=== PATIENT | male | born 1940 ===

== ENCOUNTER 2019-04-15 23:11 | Inpatient (IN) ==
--- NOTE | 2019-04-15 23:26 | ERNOTE ---
Lower Extremity HPI - General Lower Extremities Pain: hip: left - fracture Time Seen by Provider: 04/15/19 23:15 Source: patient, other - [facility] records Exam Limitations: no limitations - Immun/Allergies/Home Medications Immunizations: IMMUNIZATION HX Immunizations Up to Date Yes History of Influenza Vaccine Yes Allergies/Adverse Reactions: Allergies Allergy/AdvReac Type Severity Reaction Status Date / Time No Known Allergies Allergy Unverified 12/09/13 13:23 Home Medications: HOME MEDICATIONS Aspirin/Dipyridamole [Aggrenox] 1 cap PO BID 04/15/19 [Last Taken Unknown] Cholecalciferol [Vitamin D] 1,000 unit PO DAILY 04/15/19 [Last Taken Unknown] Ezetimibe/Simvastatin [Vytorin 10-40 mg Tablet] 1 ea PO DAILY 04/15/19 [Last Taken Unknown] Famotidine [Pepcid] 20 mg PO DAILY 04/15/19 [Last Taken Unknown] Gabapentin [Neurontin] 300 mg PO BID 04/15/19 [Last Taken Unknown] Losartan Potassium 100 mg PO DAILY 04/15/19 [Last Taken Unknown] Multivit-Min/FA/Lycopen/Lutein [Centrum Silver Tablet] 1 ea PO DAILY 04/15/19 [Last Taken Unknown] Sertraline HCl [Zoloft] 50 mg PO HS 04/15/19 [Last Taken Unknown] Tamsulosin HCl 0.4 mg PO DAILY 04/15/19 [Last Taken Unknown] Tramadol HCl [Rybix Odt] 50 mg PO QID PRN 04/15/19 [Last Taken Unknown] Insulin Aspart Prot/Insuln Asp [Novolog Mix 70/30] 18 units SC QPM 04/16/19 [Last Taken Unknown] Insulin Aspart Prot/Insuln Asp [Novolog Mix 70/30] 30 units SC QAM 04/16/19 [Last Taken Unknown] Methocarbamol [Robaxin] 500 mg PO TID 04/16/19 [Last Taken Unknown] - History of Present Illness Narrative: Patient slid out of his chair fell on his left hip sustained a surgical neck fracture, nondisplaced. He was seen at [facility] and diagnosed he was transferred here for orthopedics and accepted by Dr. Chavez Occurred: this evening Location of Incident: home Method of Injury: Reports: fell Loss of Consciousness: Reports: no loss of consciousness Associated Symptoms: Reports: unable to bear weight Other Injuries: Reports: none Review of Systems - Review of Systems Constitutional: Absent: recent illness, fever, chills Respiratory: Absent: shortness of breath Cardiology: Absent: chest pain Gastrointestinal/Abdominal: Absent: nausea, vomiting Genitourinary: Absent: pain, dysuria Musculoskeletal: Present: See HPI Skin: Absent: rash Neurological: Absent: numbness, tingling Endocrine: Absent: excessive sweating Hematologic/Lymphatic: Absent: easy bruising, easy bleeding Medical History (Updated 04/17/19 @ 10:57 by Saray Barton DO) Diabetes HTN (hypertension) Surgical History: Surgical History (Updated 04/15/19 @ 23:20 by Leta Levi) History of back surgery Hx of foot surgery Hx of shoulder replacement Hx of shoulder surgery right shoulder Social History: (Last Reviewed 04/16/19 @ 02:03 by Anu Quispe RN) Social History: adopted: No chcf: No lives independently: Yes household members: spouse current occupational status: retired Tobacco: Smoking Status: Never smoker Alcohol: alcohol intake: never Substance Use: substance use type: does not use Physical Exam - Physical Exam General Appearance: Present: wd/wn, alert, no apparent distress Head Exam: Present: normal inspection, no evidence of injury Ears, Nose, Throat: Present: normal ENT inspection Neck: Present: normal inspection, nontender Respiratory: Present: no respiratory distress, normal breath sounds, chest nontender, lungs clear Cardiovascular/Chest: Present: regular rate, rhythm, no murmur, normal peripheral pulses Peripheral Pulses: N=norm/S=strong/W=weak/B=bound/A=absent: Dorsalis-pedis (R): Normal, Dorsalis-pedis (L): Normal Gastrointestinal/Abdominal: Present: normal bowel sounds, nontender, nondistended, soft Extremity Exam: Present: normal except - - Left hip painful with motion. Minimal tenderness to palpation Neurological Exam: Present: alert, oriented, normal mood/affect, no motor/sensory deficits Skin Exam: Present: normal color, warm/dry Progress - Vital Signs Vital Signs: Vital Signs 04/15/19 23:13 Temperature 36.9 C Pulse Rate 78 Respiratory Rate 18 Blood Pressure 187/93 H O2 Sat by Pulse Oximetry 98 - Progress/Reassessment Chief Complaint: Hip Pain/Injury Progress Note-Subjective: 04/15/19 23:26 I reviewed records from [facility] Spoke with Dr. Chavez he asked patient be admitted to medicine and consult orthopedics. 04/16/19 00:[address] Hicks she agrees with admit and consult Dr. Chavez Departure Clinical Impression: Fracture of femoral neck, left Qualifiers: Encounter type: initial encounter Fracture type: closed Qualified Code(s): S72.002A - Fracture of unspecified part of neck of left femur, initial encounter for closed fracture Hypertension Qualifiers: Hypertension type: essential hypertension Qualified Code(s): I10 - Essential (primary) hypertension Diabetes Qualifiers: Diabetes mellitus type: type 2 Diabetes mellitus correction insulin use: with long term care administrator use Diabetes mellitus complication status: without complication Qualified Code(s): E11.9 - Type 2 diabetes mellitus without complications - Departure Disposition: Still a patient Condition: Stable
[2019-04-16] MEDS ORDERED: ONDANSETRON HCL/PF 2 MG/ML VIAL IV PRN (00:50)
[2019-04-16] MEDS: MORPHINE SULFATE 2 MG/ML DISP.SYRIN IV PRN ×4 (01:18→10:09)
[2019-04-16] MEDS ORDERED: ROPIVACAINE HCL/PF 100 MG, EPINEPHrine 0.2 MG, KETOROLAC TROMETHAMINE 30 MG in NORMAL S... IJ PRN (06:00)
[2019-04-16] MEDS ORDERED: ceFAZolin SODIUM 1 GM VIAL IV PRN (06:00)
[2019-04-16] MEDS ORDERED: TRANEXAMIC ACID 1,000 MG in NORMAL SALINE 100 ML IV PRN (06:00)
--- NOTE | 2019-04-16 07:17 | HP ---
Chief Complaint - Chief Complaint Date of Service: 04/16/19 Time of Service: 07:00 Chief Complaint: Left hip fracture History of Present Illness: 78-year-old male with past medical history of essential hypertension and non-insulin diabetes mellitus type 2, depression and BPH presented to [facility] from home secondary to a fall. Daughter is at bedside. Patient states that he fell down on his back and he hit his arm on his way down resulting in the bruises on his left forearm. Is that he did not hit his head on the floor. He landed on the floor he was supported by the cabinet behind him. He states that he pushed his emergency alert button and called his daughter. His daughter was called because they were concerned that his may not be able to handle the locks on the door. Patient was brought into the ER and evaluated and was found to have a left hip fracture. Dr Chavez was consulted and patient was accepted and transferred to the floor. On arrival to the floor I was notified the patient's blood pressure was elevated to systolic greater than 200 and diastolic of greater than 991. Heart rate was greater than 100. She was complaining of tachycardia. Some concern the patient may be confused. However when daughter came in this morning we verified father's mental status and she confirmed that this is how his father is. And examined patient is alert and oriented x3 examinations unremarkable. Examination is only significant for the bruising on his right forearm. It is well controlled with current medication or tramadol. Losartan 100 mg administered. Is patient's home medication. Stat labs were obtained, along with EKG and troponin. Labs are currently unremarkable, EKG is not concerning. BP is elevated however patient is asymptomatic. Medical History (Updated 04/16/19 @ 00:04 by Shane Clancy DO) Diabetes HTN (hypertension) Surgical History: Surgical History (Updated 04/15/19 @ 23:20 by Leta Levi) History of back surgery Hx of foot surgery Hx of shoulder replacement Hx of shoulder surgery right shoulder Social History: (Last Reviewed 04/16/19 @ 02:03 by Anu Quispe RN) Social History: adopted: No mcfp: No lives independently: Yes household members: spouse current occupational status: retired Tobacco: Smoking Status: Never smoker Alcohol: alcohol intake: never Substance Use: substance use type: does not use Review Of Systems (GEN) - Review of Systems Generalized/Overall Review: Absent: Weakness EENTM: Absent: Blurred Vision Respiratory: Absent: Shortness of Breath Cardiac: Absent: Chest Pain, Edema Abdominal: Absent: Nausea, Vomiting Musculoskeletal: Present: Joint Pain - Pain Neurological: Present: Headache Skin: Present: Bruising - Left forearm Immunizations: IMMUNIZATION HX Immunizations Up to Date Yes History of Influenza Vaccine Yes Allergies/Adverse Reactions: Allergies Allergy/AdvReac Type Severity Reaction Status Date / Time No Known Allergies Allergy Unverified 12/09/13 13:23 Home Medications: HOME MEDICATIONS Insulin Aspart [Novolog] 35 unit SC QPM 12/09/13 [Last Taken Unknown] Insulin Aspart [Novolog] 45 unit SQ QAM 12/09/13 [Last Taken Unknown] Aspirin/Dipyridamole [Aggrenox] 1 cap PO BID 04/15/19 [Last Taken Unknown] Cholecalciferol [Vitamin D] 1,000 unit PO DAILY 04/15/19 [Last Taken Unknown] Ezetimibe/Simvastatin [Vytorin 10-40 mg Tablet] 1 ea PO DAILY 04/15/19 [Last Taken Unknown] Famotidine [Pepcid] 20 mg PO DAILY 04/15/19 [Last Taken Unknown] Gabapentin [Neurontin] 300 mg PO BID 04/15/19 [Last Taken Unknown] Insulin NPH Hum/Reg Insulin Hm [Humulin 70-30] 18 unit SC 1700 04/15/19 [Last Taken Unknown] Insulin NPH Hum/Reg Insulin Hm [Humulin 70-30] 30 unit SC DAILY 04/15/19 [Last Taken Unknown] Losartan Potassium 100 mg PO DAILY 04/15/19 [Last Taken Unknown] Multivit-Min/FA/Lycopen/Lutein [Centrum Silver Tablet] 1 ea PO DAILY 04/15/19 [Last Taken Unknown] Sertraline HCl [Zoloft] 50 mg PO HS 04/15/19 [Last Taken Unknown] Tamsulosin HCl 0.4 mg PO DAILY 04/15/19 [Last Taken Unknown] Tramadol HCl [Rybix Odt] 50 mg PO QID PRN 04/15/19 [Last Taken Unknown] Methocarbamol [Robaxin] 500 mg PO TID 04/16/19 [Last Taken Unknown] Exam - Exam Vital Signs: Vital Signs - Last Taken Temp 37.0 C 04/16/19 06:54 Pulse 80 04/16/19 06:54 Resp 16 04/16/19 06:54 BP 208/98 H 04/16/19 06:54 Pulse Ox 93 04/16/19 06:54 Constitutional: Present: Alert, Oriented x3, Cooperative, Well developed, No distress ENT Exam: Present: hearing grossly normal Neck: Present: non-tender, full range of motion, supple Respiratory: Present: chest non-tender, lungs clear, normal breath sounds Cardiovascular/Chest: Present: normal peripheral pulses, regular rate, rhythm Abdomen: Present: Normal bowel sounds, soft Extremity: Present: no pedal edema, normal capillary refill Skin Exam: Present: normal color, warm/dry Appearance: Present: appropriate appearance Eye contact: Present: cooperative Thoughts: Present: normal thought pattern Assessment/Plan - Narrative Narrative: 1. Left Hip fracture - Dr. Chavez consulted - Cont. management as per ortho recommendations 2. Hypertensive Urgency upon evaluation in the morning, currently asymptomatic - Not well controlled - Recieved Losartan 100mg PO X1 - Followed by Hydralazine 10 mg POX 1 - Just administered Labetalol 5 mg IV - EKG, Cardiac workup unremarkable - Currently Asymptomatic FEN: NPO, NS, resume diet after surgery DVT prophylaxis: Will start 12 hours s/p surgery Activity: As per ortho recommendations CODE STATUS: Full code Disposition: Due to poorly controlled hypertension, patient has a higher risk of complications s/p surgery. Will continue to monitor Resume diet and meds after surgery - Assessment/Plan (1) Fracture of femoral neck, left Problem: Acute Qualifiers: Encounter type: initial encounter Fracture type: closed Qualified Code(s): S72.002A - Fracture of unspecified part of neck of left femur, initial encounter for closed fracture (2) Hypertension Problem: Acute Qualifiers: Hypertension type: essential hypertension Qualified Code(s): I10 - Essential (primary) hypertension (3) Diabetes Problem: Acute Qualifiers: Diabetes mellitus type: type 2 Diabetes mellitus skilled nursing insulin use: with extermination inspector use Diabetes mellitus complication status: without complication Qualified Code(s): E11.9 - Type 2 diabetes mellitus without complications; Z79.4 - extermination inspector (current) use of insulin
[2019-04-16] MEDS ORDERED: LOSARTAN POTASSIUM 50 MG TABLET PO SCH ×2 (07:30→09:00)
[2019-04-16 07:50] LABS: Hematocrit 43.7 % (42.0-52.0); Hemoglobin 15.5 gm/dL (13.5-18.0); Mean Cell Volume 93.6 fl (78-100); Mean Corpuscular Hemoglobin 33.2 pg (27-31); Mean Corpuscular Hgb Conc 35.5 g/dl (32-36); Mean Platelet Volume 9.6 fl (8-11.3); Neutrophil # 8.1 K/mm3 (1.3-6.0); Neutrophil % 74.2 % (42-75.0); Platelet Count 133 K/mm3 (150-450); Red Blood Count 4.67 M/mm3 (4.7-6.0); Red Cell Distribution Width 13.3 % (11.5-14.0)
[2019-04-16] MEDS ORDERED: LOSARTAN POTASSIUM 50 MG TABLET PO ONE (08:00)
[2019-04-16 08:10] LABS: ALT 19 U/L (19-67); AST 25 U/L (0-48); Albumin * 3.7 gm/dl (3.4-5.0); Alkaline Phosphatase * 84 U/L (50-170); Anion Gap 12.3 mmol/L (6.8-13.8); BUN/Creatinine Ratio 11.8 (9.0-21.6); Blood Urea Nitrogen 13 mg/dL (6-23); Ca. Corrected For Albumin 8.7 mg/dL (8.4-10.2); Calcium * 8.8 mg/dL (7.9-10.9); Carbon Dioxide 30.2 mmol/L (24-32.6); Chloride 104 mmol/L (97-106); Glucose * 140 mg/dL (70-110); Potassium 4.5 mmol/L (3.4-4.6); Sodium 142 mmol/L (132-142); Total Protein 6.5 gm/dL (6.2-8.2)
[2019-04-16 08:11] LABS: Troponin I Less than 0.017 ng/mL (0.00-0.10)
[2019-04-16 09:08] LABS: INR 1.11 INR (0.92-1.08); Prothrombin Time (Patient) 10.9 Seconds (9.1-10.7)
--- NOTE | 2019-04-16 09:24 | ANES ---
Anesthesia Pre Procedure Eval Vitals/Labs: Last Vital Signs Temp 37.0 C 04/16/19 06:54 Pulse 78 04/16/19 09:10 Resp 16 04/16/19 06:54 BP 191/84 H 04/16/19 09:10 Pulse Ox 96 04/16/19 09:10 HOME MEDICATIONS Insulin Aspart [Novolog] 35 unit SC QPM 12/09/13 [Last Taken Unknown] Insulin Aspart [Novolog] 45 unit SQ QAM 12/09/13 [Last Taken Unknown] Aspirin/Dipyridamole [Aggrenox] 1 cap PO BID 04/15/19 [Last Taken Unknown] Cholecalciferol [Vitamin D] 1,000 unit PO DAILY 04/15/19 [Last Taken Unknown] Ezetimibe/Simvastatin [Vytorin 10-40 mg Tablet] 1 ea PO DAILY 04/15/19 [Last Taken Unknown] Famotidine [Pepcid] 20 mg PO DAILY 04/15/19 [Last Taken Unknown] Gabapentin [Neurontin] 300 mg PO BID 04/15/19 [Last Taken Unknown] Insulin NPH Hum/Reg Insulin Hm [Humulin 70-30] 18 unit SC 1700 04/15/19 [Last Taken Unknown] Insulin NPH Hum/Reg Insulin Hm [Humulin 70-30] 30 unit SC DAILY 04/15/19 [Last Taken Unknown] Losartan Potassium 100 mg PO DAILY 04/15/19 [Last Taken Unknown] Multivit-Min/FA/Lycopen/Lutein [Centrum Silver Tablet] 1 ea PO DAILY 04/15/19 [Last Taken Unknown] Sertraline HCl [Zoloft] 50 mg PO HS 04/15/19 [Last Taken Unknown] Tamsulosin HCl 0.4 mg PO DAILY 04/15/19 [Last Taken Unknown] Tramadol HCl [Rybix Odt] 50 mg PO QID PRN 04/15/19 [Last Taken Unknown] Methocarbamol [Robaxin] 500 mg PO TID 04/16/19 [Last Taken Unknown] Allergies/Adverse Reactions: Allergies Allergy/AdvReac Type Severity Reaction Status Date / Time No Known Allergies Allergy Unverified 12/09/13 13:23 - Planned Procedure Planned Procedure: LEFT HIP FRACTURE Medication List Reviewed:: Yes Allergies Verified: Yes Medical History (Updated 04/16/19 @ 00:04 by Shane Clancy DO) Diabetes HTN (hypertension) Surgical History (Updated 04/15/19 @ 23:20 by Leta Levi) History of back surgery Hx of foot surgery Hx of shoulder replacement Hx of shoulder surgery right shoulder - Family Anesthesia History Family History:: no untoward family reactions to anesthesia - Airway/Neck/Teeth Within Normal Limits:: Yes Teeth Condition: intact Neck Exam: full range of motion Mallampatti Score: 2 Thyromental (T-M) distance: > 6 cm Mandibulo Hyoid distance: > 3 cm - Respiratory Respiratory Physical: lungs clear Smoking Status: Never smoker Sleep Apnea currently treated: No Sleep Apnea by current assessment: No - Cardiovascular Cardiac History: TIA, hypertension Tolerate Activity: Fair Heart Sounds: S1 & S2, Regular - Anesthesia Assessment and Plan ASA Class: PS, III Anesthesia Type Plan: General ET Planned difficult intubation/equipment available: No
[2019-04-16] MEDS ORDERED: hydrALAZINE HCL 10 MG TABLET PO ONE (09:45)
[2019-04-16] MEDS ORDERED: LABETALOL HCL 5 MG/ML VIAL IV ONE (11:01)
--- NOTE | 2019-04-16 11:47 | CONS ---
[facility] - General Date of Service: 04/16/19 Narrative: Michael is an 78-year-old male who fell from standing height in his home last night and sustained a left femoral neck fracture. He was initially evaluated in outside emergency department where plain films revealed fracture. He was transferred to the [facility] emergency department for further orthopedic treatment. He has no other injuries. He complains only of left hip pain upon my evaluation at bedside. He notes that he has had a couple falls in the last year secondary to losing his balance. He is otherwise fairly active and a community ambulator. He lives at home with his who he helps take care of as she has some dementia. He has a history of diabetes and hypertension. He denies headache, dizziness, chest pain, or shortness of breath. Source: patient - History of Present Illness Allergies/Adverse Reactions: Allergies No Known Allergies Allergy (Unverified 12/09/13 13:23) Home Medications: Home Medications Medication Instructions Recorded Last Taken Insulin Aspart [Novolog] 35 unit SC QPM 12/09/13 Unknown Insulin Aspart [Novolog] 45 unit SQ QAM 12/09/13 Unknown Aspirin/Dipyridamole [Aggrenox] 1 cap PO BID 04/15/19 Unknown Cholecalciferol [Vitamin D] 1,000 unit PO DAILY 04/15/19 Unknown Ezetimibe/Simvastatin [Vytorin 1 ea PO DAILY 04/15/19 Unknown 10-40 mg Tablet] Famotidine [Pepcid] 20 mg PO DAILY 04/15/19 Unknown Gabapentin [Neurontin] 300 mg PO BID 04/15/19 Unknown Insulin NPH Hum/Reg Insulin Hm 18 unit SC 1700 04/15/19 Unknown [Humulin 70-30] Insulin NPH Hum/Reg Insulin Hm 30 unit SC DAILY 04/15/19 Unknown [Humulin 70-30] Losartan Potassium 100 mg PO DAILY 04/15/19 Unknown Multivit-Min/FA/Lycopen/Lutein 1 ea PO DAILY 04/15/19 Unknown [Centrum Silver Tablet] Sertraline HCl [Zoloft] 50 mg PO HS 04/15/19 Unknown Tamsulosin HCl 0.4 mg PO DAILY 04/15/19 Unknown Tramadol HCl [Rybix Odt] 50 mg PO QID PRN 04/15/19 Unknown Methocarbamol [Robaxin] 500 mg PO TID 04/16/19 Unknown Procedures Insertion of intraocular lens prosthesis at time of cataract extraction, one- stage (12/13/13) Phacoemulsification and aspiration of cataract (12/13/13) Medications - Medications Current Medications: Current Medications Morphine Sulfate (Morphine Sulfate) 2 mg IV Q2H PRN PRN Reason: Pain Stop: 05/16/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 Physical Examination - Exam Narrative: Gen: A&Ox4, NAD Resp: breathing nonlabored on RA CV: RRR MSK: LLE--> severe pain with any attempted range of motion of the left lower extremity, no tenderness, leg slightly shortened and externally rotated, sensation intact light touch throughout all nerve distributions of the left lower extremity, distal capillary refill brisk. Radiology: Plain films from outside emergency department demonstrated displaced left femoral neck fracture with mild to moderate pre-existing degenerative change of the hip. Vital Signs: Vital Signs - Last Taken Temp 37.0 C 04/16/19 06:54 Pulse 72 04/16/19 11:35 Resp 16 04/16/19 06:54 BP 200/87 H 04/16/19 11:35 Pulse Ox 96 04/16/19 09:10 O2 Oxygen Delivery Method Room Air - Results and Findings: Narrative: 78-year-old male community ambulator with displaced left femoral neck fracture. -I counseled the patient on treatment options today including nonoperative management with protected weightbearing and pain control versus arthroplasty. I counseled him that based on his age, activity level, and relatively good health, that I recommended surgery, particularly total hip arthroplasty. I counseled him on the risk of surgery including, but not limited to, infection, bleeding, need for postoperative transfusion, intraoperative fracture, implant failure/loosening, instability, leg length discrepancy, wound complications, DVT/PE, and risks with anesthesia. After discussion he wishes to proceed with surgery. -Plan for left total hip arthroplasty this afternoon once medically optimized. -Informed consent obtained. -Blood pressure elevated, medicine team managing. -N.p.o. -Admit back to floor postoperatively for physical therapy, medical comanagement, and discharge planning. Lab/Microbiology results last 24 hrs: Abnormal/Pending Laboratory Last 24 HRS 04/16/19 04/16/19 04/16/19 07:46 07:46 07:45 WBC 11.0 H RBC 4.67 L MCH 33.2 H Plt Count 133 L Immature Gran # (Auto) 0.04 H Lymphocytes % 14.6 L Neutrophils # 8.1 H PT 10.9 H INR (Anticoag Therapy) 1.11 H Plasma Sodium 143 H Random Glucose 140 H - Assessments/Findings (1) Fracture of femoral neck, left Problem: Acute Qualifiers: Encounter type: initial encounter Fracture type: closed Qualified Code(s): S72.002A - Fracture of unspecified part of neck of left femur, initial encounter for closed fracture
[2019-04-16] MEDS ORDERED: VANCOMYCIN HCL 1 GM VIAL TP ONE (13:51)
[2019-04-16] MEDS: RINGER'S SOLUTION,LACTATED 1,000 ML IV PRN ×2 (14:31→23:15)
[2019-04-16] MEDS ORDERED: oxyCODONE HCL/ACETAMINOPHEN 1 TAB TABLET PO PRN (15:40)
[2019-04-16] MEDS ORDERED: MAG HYDROX/ALUMINUM HYD/SIMETH 30 ML UDC PO PRN (15:40)
[2019-04-16] MEDS ORDERED: ACETAMINOPHEN 500 MG TABLET PO PRN (15:40)
[2019-04-16] MEDS ORDERED: MAGNESIUM HYDROXIDE 30 ML UDC PO PRN (15:40)
[2019-04-16] MEDS ORDERED: MORPHINE SULFATE 4 MG/ML SYRG IV PRN (15:40)
--- NOTE | 2019-04-16 15:53 | OR ---
Operative Report - Dictated Report Narrative: Date: 04/16/2019 Preoperative diagnosis: Left displaced femoral neck fracture Postoperative diagnosis: Left displaced femoral neck fracture Procedure: Left total hip arthroplasty Surgeon: Francisco Chavez M.D. Carrier Washer: Thiago Mcqueen PA-C provided a set of essential, skilled, educated hands that assisted in positioning, transfer, retraction, manipulation, irrigation, closure of wounds, and placement of dressings all of which could not be provided by the available surgical crew. Anesthesia: Spinal and local periarticular joint injection. Complications: None Specimens: Femoral head/neck Estimated blood loss: 200 mL Retained implants: Depuy Corail size 15 femoral stem standard offset. Size 60 millimeter ouside diameter 3-hole [place] Gription acetabular cup. 60 millimeter outside by 36 millimeter inside diameter highly cross-linked acetabular liner. 36 millimeter diameter + 12 millimeter cobalt chromium femoral head. Cancellous 6.5mm screw 30 millimeter length Indications: Michael is a 78-year-old community ambulator who tripped and fell in his home last night resulting in a displaced left femoral neck fracture. He was initially seen in an outside emergency department where plain films revealed the injury. He was transferred to [facility] for further orthopedic management. He was seen on the floor and I counseled him on treatment options. Given his activity level, relatively good health, and fracture pattern, I recommended total hip arthroplasty. The risks of , blood clots, bleeding, infection, nerve/tendon blood vessel/ injury, malposition of components, dislocation and/or instability of joint, intraoperative fracture, postoperative limited range of motion, persistent pain, failure of components, and need for additional procedures. Patient wished to proceed. Consent was obtained after answering all questions. Procedure: After marking the correct extremity on the floor, the patient was taken to the operating room. A timeout was performed. IV antibiotics consisting of 2 g of Ancef were administered prior to the procedure. A spinal anesthetic was induced by anesthesia. A Gonzalez catheter was inserted. The patient was then transitioned to a lateral position on a well-padded pegboard. And an axillary roll was placed. The head was in neutral position. The non- operative down leg was well-padded with SCD and CRYSTAL hose in place. The arms were supported and padded to protect from any undue pressure on the bony prominences and nerves. Well-padded anterior and posterior pelvic and chest posts were secured in order to maintain a stable position of the pelvis. This was placed so that the pelvis was perpendicular to the floor. The body was in line with the pelvis. Once it was felt that we had protected all the bony prominences and the patient was well secured with a safety belt as well, the leg was pre-scrubbed with alcohol, prepped and draped in a standard sterile fashion. A standard anterior lateral hip incision was marked out over the greater trochanter. Ioban drapes were then placed. The skin incision was then made. Sharp dissection with a scalpel utilizing cautery for hemostasis was carried out down to the gluteus and iliotibial band fascia. This was split in line with the skin incision. The greater trochanter bursa was excised. The anterior and posterior margins of the abductor tendon were identified. The anterior 1/3 of the tendon was tagged and reflected off the greater trochanter leaving a sleeve of tendon for repair at the completion of the case. This exposed the underlying hip joint capsule. A limb length stitch was placed in the skin and referenced off a edison on the greater trochanter for evaluation of intraoperative limb lengths. An inverted T-type capsulotomy was made extending this up to the brim of the acetabulum. Fracture hematoma was immediately encountered. With the leg in an externally rotated and adducted position, the cutting flag was utilized in order to edison for a low femoral neck cut approximately above the level of the lesser trochanter. This was done while protecting the surrounding soft tissues with Homans. The femoral head was then removed with a corkscrew and sized for guidance on preparation of the acetabulum. It was noted that there was loss of articular cartilage on both the femoral head and weightbearing portions of the acetabulum. We then returned the leg to the table and turned our attention to the acetabulum. While protecting the surrounding soft tissues, the labrum and remaining tissue in the fovea were excised using a scalpel and cautery. A series of reamers up to size 59 millimeter were utilized to prepare the acetabulum. The final reamer had good purchase and exposed the bleeding subchondral bone. The acetabulum was then thoroughly irrigated ensuring that all bony and cartilaginous materials were removed and the final acetabular shell was impacted into place. This was placed in approximately 40 degrees of abduction and 20 degrees of anteversion utilizing the outrigger and body axis for alignment. This had a good press fit. One 6.5 x 30 mm cancellous screw was placed in the posterior superior quadrant of the acetabulum. The shell was then thoroughly irrigated and the final p olyethylene was impacted into place ensuring that it seated completely. This was then protected with a sponge while we returned our attention to the femur. With the leg in a figure 4 position utilizing Homans for soft tissue protection, a box cutting osteotome, followed by Charnley awl, followed by serial impaction broaches were utilized in order to prepare the femur. It was found that a size 15 broach gave good axial and rotational stability. The calcar reamer was utilized in order to clean up the cut edges. The proximal femur was visualized to ensure that there were no signs of fracture. A series of heads and necks were trialed. It was found that a standard neck and a + 12 mm femoral head gave good overall stability. There was minimal longitudinal instability. With the leg in the position of sleep the femoral head was well covered. Hip range of motion was able to reach full extension and external rotation to greater than 75 degrees prior to impingement along the posterior acetabulum. The hip was able to be flexed to greater than 90 degrees with internal rotation greater than 60 degrees prior to anterior impingement. The limb lengths were near equal based on comparison to the contralateral side in the prior placed limb length stitch. At this point was felt this was the appropriately sized femoral stem as well as neck and femoral head. The trial implants were removed. The final implants were impacted in the place and the hip was reduced. After ensuring that there was no damage to the proximal femur, the standard periarticular joint injection of ropivacaine, Toradol, and epinephrine were injected into the joint capsule and surrounding soft tissues. 1 g of vancomycin powder was placed in the joint. The capsule was repaired with interrupted #1 Vicryl. The abductor tendon was repaired to the greater trochanter utilizing Fibertape. This was oversewn with #1 Vicryl. The fascia was closed with running #1 Stratafix PDS barbed suture. The wounds were thoroughly irrigated as we closed in layers. The deep fat layers were closed with running 0 Stratafix PDS barbed suture. The subcutaneous tissue was closed with interrupted 3-0 Vicryl and the skin with a running subcuticular 4-0 monocryl and Prineo dressing. All sponge, needle, blade, and instrument counts were correct prior to closing the wounds. Sterile dressings consisting of Xeroform, 4 x 4's, ABD, and tape were applied. The patient was awoken and transferred to her hospital bed and then to the postanesthesia care unit in stable condition. Postoperative condition: The plan is to admit to the medical/surgical inpatient floor postoperatively. There will be a projected 2 to 4 day hospital stay. Postoperatively 24 hours of IV antibiotics, pain control, physical therapy, occupational therapy, and medical comanagement will be utilized. Patient will be weightbearing as tolerated with anterior hip precautions. Postoperative films will be obtained in the recovery room.
--- NOTE | 2019-04-16 16:16 | ANES ---
Post Anesthesia Discharge - Transfer of Care Transfer of Care handoff given to nurse: Yes - Discharge from PACU Discharge from PACU when meets criteria: Yes - Sleepy, comfortable.
--- NOTE | 2019-04-16 16:58 | ANES ---
Post Anesthesia Assessment - Vital Signs Vitals: Last Vital Signs Temp 36.8 C 04/16/19 16:30 Pulse 86 04/16/19 16:30 Resp 16 04/16/19 16:30 BP 141/71 04/16/19 16:30 Pulse Ox 96 04/16/19 16:30 Airway Patency: Normal - Mental Status Level Of Consciousness: Awake, Alert, Appropriate - Pain Level Pain Score: 2 - N/V Assessment Nausea/Vomiting Presence: None Dehydration:: No
[2019-04-16 17:27] LABS: Troponin I 0.018 ng/mL (0.00-0.10)
[2019-04-16] MEDS: oxyCODONE HCL/ACETAMINOPHEN 1 TAB TABLET PO PRN ×2 (17:37→22:16)
[2019-04-16] MEDS: ceFAZolin SODIUM 2 GM in DEXTROSE 5 % IN WATER 50 ML IV SCH ×2 (20:36)
[2019-04-16] MEDS: SENNOSIDES/DOCUSATE SODIUM 1 TAB TABLET PO SCH (20:36)
[2019-04-17] MEDS: ceFAZolin SODIUM 2 GM in DEXTROSE 5 % IN WATER 50 ML IV SCH ×4 (03:32→11:02)
[2019-04-17] MEDS: oxyCODONE HCL/ACETAMINOPHEN 1 TAB TABLET PO PRN ×4 (03:32→20:43)
[2019-04-17 06:14] LABS: Hematocrit 37.3 % (42.0-52.0); Hemoglobin 12.9 gm/dL (13.5-18.0); Mean Cell Volume 94.4 fl (78-100); Mean Corpuscular Hemoglobin 32.7 pg (27-31); Mean Corpuscular Hgb Conc 34.6 g/dl (32-36); Mean Platelet Volume 10.3 fl (8-11.3); Platelet Count 106 K/mm3 (150-450); Red Blood Count 3.95 M/mm3 (4.7-6.0); Red Cell Distribution Width 13.4 % (11.5-14.0); White Blood Count 8.8 K/mm3 (4.0-10.5)
[2019-04-17 06:23] LABS: Anion Gap 10.8 mmol/L (6.8-13.8); BUN/Creatinine Ratio 14.3 (9.0-21.6); Calcium * 7.7 mg/dL (7.9-10.9); Carbon Dioxide 26.5 mmol/L (24-32.6); Estimated Creat Clear 50.9; Potassium 4.3 mmol/L (3.4-4.6)
[2019-04-17] MEDS ORDERED: LOSARTAN POTASSIUM 50 MG TABLET PO SCH (09:00)
--- NOTE | 2019-04-17 09:52 | PN ---
Subjective - Date and Time Seen Date: 04/17/19 Time: 09:52 Subjective Narrative: Patient reports his brain feels foggy this morning. He knows that he wants to say but is having difficulty getting the words out. He states he fractured his hip "in 3 sessions." Otherwise, he reports urinating and having bowel movements without difficulty. He was able to work with physical therapy this morning. Objective - Review of Systems Generalized/Overall Review: Denies: Fever Respiratory: Denies: Shortness of Breath Cardiac: Denies: Chest Pain, Edema Abdominal: Denies: Vomiting, Constipation Genitourinary Symptoms: Reports: No Symptoms Reported - Vitals Vitals: Last Vital Signs Temp 36.4 C 04/17/19 08:34 Pulse 84 04/17/19 08:34 Resp 18 04/17/19 08:34 BP 105/65 04/17/19 08:34 Pulse Ox 95 04/17/19 08:34 - Abnormal Lab Findings Abnormal Lab Findings: Abnormal Lab Results 04/17/19 04/17/19 Range/Units 06:10 06:10 RBC 3.95 L (4.7-6.0) M/mm3 Hgb 12.9 L (13.5-18.0) gm/dL Hct 37.3 L (42.0-52.0) % MCH 32.7 H (27-31) pg Plt Count 106 L (150-450) K/mm3 Random Glucose 167 H (70-110) mg/dL Calcium 7.7 L (7.9-10.9) mg/dL - Exam Constitutional: Present: Alert, Cooperative, No distress, Elderly Respiratory: Present: normal breath sounds Cardiovascular/Chest: Present: regular rate, rhythm Abdomen: Present: soft, nontender Extremity: Present: other - SCDs in place with CRYSTAL ghotra. 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 Absent: facial droop Eye contact: Present: good eye contact Cauti Physician Documentation - Urinary Catheter Management Urethral (Gonzalez) Date of Insertion: 04/16/19 Time of Insertion: 14:09 Date of Removal: 04/17/19 Time of Removal: 05:30 Assessment/Plan - Problems/Diagnosis (1) Aphasia Problem: Acute Narrative: Seems to have developed this morning. CT has been obtained which was normal, and will obtain MRI. He states he knows that he wants to say but is having difficulty getting the words out. Differential includes CVA, medication side effect, posterior reversible encephalopathy syndrome, electrolyte abnormality. His blood pressure went from 172/77 to 105/65 over a time span of 4 hours this morning, which is a significant change in a short amount of time, making PRES a possibility. BP goals should be around 160/70. If aphasia persists, recommend speech therapy consult. (2) Fracture of femoral neck, left Problem: Acute Qualifiers: Encounter type: initial encounter Fracture type: closed Qualified Code(s): S72.002A - Fracture of unspecified part of neck of left femur, initial encounter for closed fracture Narrative: He is postop day 1 surgical repair. Continue working with physical therapy. Pain control with Percocet. Holding home tramadol and Robaxin. (3) Hypertension Problem: Chronic Qualifiers: Hypertension type: essential hypertension Qualified Code(s): I10 - Essential (primary) hypertension Narrative: He had a significant drop in his blood pressure over 4 hours. We will hold his home losartan. Given his elevated blood pressure during the first part of this admission, his blood pressure goal will be around 160/70. His highly elevated BP may hve been secondary to pain. We will restart his home losartan when his blood pressure is greater than 160/70 consistently. (4) Diabetes Problem: Chronic Qualifiers: Diabetes mellitus type: type 2 Diabetes mellitus fpc insulin use: with fpc use Diabetes mellitus complication status: without complication Qualified Code(s): E11.9 - Type 2 diabetes mellitus without complications; Z79.4 - terminal press operator (current) use of insulin Narrative: He has insulin on his home medication list, but no metformin. His blood glucose has been in the 100s, so insulin not currently needed. Will start insulin if his blood sugar is consistently greater than 200.
[2019-04-17] MEDS: ENOXAPARIN SODIUM 40 MG/0.4 ML SYRG SC SCH (14:09)
[2019-04-17] MEDS ORDERED: NORMAL SALINE 1,000 ML IV PRN (15:58)
[2019-04-17] MEDS: SERTRALINE HCL 50 MG TABLET PO SCH (20:36)
[2019-04-17] MEDS: SENNOSIDES/DOCUSATE SODIUM 1 TAB TABLET PO SCH (20:36)
[2019-04-17] MEDS ORDERED: METOPROLOL TARTRATE 1 MG/ML AMPUL IV ONE (23:32)
[2019-04-18] MEDS ORDERED: ENOXAPARIN SODIUM 40 MG/0.4 ML SYRG SC ONE (00:33)
[2019-04-18] MEDS: METOPROLOL TARTRATE 50 MG TABLET PO SCH ×3 (01:00→20:32)
[2019-04-18] MEDS: oxyCODONE HCL/ACETAMINOPHEN 1 TAB TABLET PO PRN ×3 (02:09→14:36)
[2019-04-18 05:32] LABS: Hematocrit 38.2 % (42.0-52.0); Hemoglobin 13.4 gm/dL (13.5-18.0); Mean Cell Volume 95.5 fl (78-100); Mean Corpuscular Hemoglobin 33.5 pg (27-31); Mean Corpuscular Hgb Conc 35.1 g/dl (32-36); Mean Platelet Volume 11.2 fl (8-11.3); Platelet Count 132 K/mm3 (150-450); Red Cell Distribution Width 13.2 % (11.5-14.0); White Blood Count 12.4 K/mm3 (4.0-10.5)
[2019-04-18 05:37] LABS: Anion Gap 13.3 mmol/L (6.8-13.8); BUN/Creatinine Ratio 12.6 (9.0-21.6); Carbon Dioxide 25.7 mmol/L (24-32.6); Estimated Creat Clear 55.3
[2019-04-18] MEDS: FAMOTIDINE 20 MG TABLET PO SCH (08:04)
[2019-04-18] MEDS ORDERED: TAMSULOSIN HCL 0.4 MG CAP.SR.24H PO SCH (09:00)
--- NOTE | 2019-04-18 11:42 | PN ---
Subjective - Date and Time Seen Date: 04/18/19 Time: 11:42 Subjective Narrative: No acute events overnight, patient doing fairly well. Patient denies being any pain, states it is well-controlled. Doing well with therapy. Vital signs blood pressure been stable. Patient does not appear to be confused currently but at times per nursing staff this is not the case. I do not know his baseline and npo family in the room. Of note patient apparently went into A. fib for short time last night but reverted back to normal sinus rhythm after being given a dose of Lopressor. He was given an extra dose of Lovenox but since he has not reverted back to a-fib, will just monitor. Objective - Review of Systems Generalized/Overall Review: Denies: Weakness, Chills EENTM: Reports: No Symptoms Reported Respiratory: Denies: Cough, Shortness of Breath Cardiac: Denies: Chest Pain, Palpitations Abdominal: Denies: Nausea, Vomiting, Abdominal Pain Genitourinary Symptoms: Denies: Burning, Urgency Musculoskeletal Complaints: Reports: Joint Pain - controlled Neurological: Denies: Headache, Numbness, Weakness - Vitals Vitals: Last Vital Signs Temp 37.2 C 04/18/19 07:14 Pulse 75 04/18/19 08:04 Resp 20 04/18/19 07:14 BP 143/70 04/18/19 08:04 Pulse Ox 92 L 04/18/19 07:14 - Abnormal Lab Findings Abnormal Lab Findings: Abnormal Lab Results 04/18/19 04/18/19 Range/Units 05:30 05:30 WBC 12.4 H D (4.0-10.5) K/mm3 RBC 4.00 L (4.7-6.0) M/mm3 Hgb 13.4 L (13.5-18.0) gm/dL Hct 38.2 L (42.0-52.0) % MCH 33.5 H (27-31) pg Plt Count 132 L (150-450) K/mm3 Random Glucose 194 H (70-110) mg/dL - Exam Constitutional: Present: Alert, Oriented x3, Cooperative, Elderly ENT Exam: Present: hearing grossly normal Neck: Present: non-tender, supple Respiratory: Present: lungs clear, normal breath sounds Cardiovascular/Chest: Present: normal peripheral pulses, regular rate, rhythm Abdomen: Present: Normal bowel sounds, soft, nontender, nondistended /Rectal: Present: Exam deferred Extremity: Present: lower extremity edema - LLE, minimal, leg pain. Absent: leg cramps Skin Exam: Present: normal color, warm/dry Neurologic: Present: alert, normal mood/affect, oriented x 3 Appearance: Present: appropriate appearance, appropriate insight Eye contact: Present: cooperative, good eye contact Thoughts: Present: normal thought pattern, normal mood /affect Cauti Physician Documentation - Urinary Catheter Management Urethral (Gonzalez) Date of Insertion: 04/16/19 Time of Insertion: 14:09 Date of Removal: 04/17/19 Time of Removal: 05:30 Assessment/Plan Plan Narrative: 78-year-old male, day 2 status post left femur fracture repair with Dr. Chavez, pain well controlled and doing well. Continue physical therapy, plan for discharge in the near future. Ortho managing, grateful to help out. Hypertension appears to be well controlled, no changes for this treatment plan at this time. Patient is apparently a diabetic per previous notes, he has had elevated sugars but he is not currently on any diabetic medication. We will go ahead ahis insulin with Accu-Cheks q. before meals at bedtime Per nursing staff he still acting a little confused but I do not know him at his baseline and he seemed appropriate. UA was ordered which came back showing urinary tract infection. We will start him on Rocephin 1 g given today, cultures pending. Medications reconciled, continue current diet. Lovenox for DVT. Nurses to call with questions or concerns. \ - Problems/Diagnosis (1) Fracture of femoral neck, left Problem: Acute Qualifiers: Encounter type: initial encounter Fracture type: closed Qualified Code(s): S72.002A - Fracture of unspecified part of neck of left femur, initial encounter for closed fracture (2) Hypertension Problem: Chronic Qualifiers: Hypertension type: essential hypertension Qualified Code(s): I10 - Essential (primary) hypertension (3) Diabetes Problem: Chronic Qualifiers: Diabetes mellitus type: type 2 Diabetes mellitus supervisor intermediates insulin use: with group home use Diabetes mellitus complication status: without complication Qualified Code(s): E11.9 - Type 2 diabetes mellitus without complications; Z79.4 - watermelon harvesting supervisor (current) use of insulin
--- NOTE | 2019-04-18 12:49 | PN ---
Subjective - Date and Time Seen Date: 04/18/19 Time: 12:47 Subjective Narrative: No events overnight. Pain controlled this morning. Making appropriate gains with therapy. Objective - Vitals Vitals: Last Vital Signs Temp 37.2 C 04/18/19 07:14 Pulse 75 04/18/19 08:04 Resp 20 04/18/19 07:14 BP 143/70 04/18/19 08:04 Pulse Ox 92 L 04/18/19 07:14 - Abnormal Lab Findings Abnormal Lab Findings: Abnormal Lab Results 04/18/19 04/18/19 Range/Units 05:30 05:30 WBC 12.4 H D (4.0-10.5) K/mm3 RBC 4.00 L (4.7-6.0) M/mm3 Hgb 13.4 L (13.5-18.0) gm/dL Hct 38.2 L (42.0-52.0) % MCH 33.5 H (27-31) pg Plt Count 132 L (150-450) K/mm3 Random Glucose 194 H (70-110) mg/dL - Exam Exam Narrative: Gen: A&Ox4, NAD CV: RRR Resp: breathing non-labored MSK: LLE--> dressings c/d/i, appropriate swelling and tenderness, no erythema, SILT, distal cap refill brisk Cauti Physician Documentation - Urinary Catheter Management Urethral (Gonzalez) Date of Insertion: 04/16/19 Time of Insertion: 14:09 Date of Removal: 04/17/19 Time of Removal: 05:30 Assessment/Plan Plan Narrative: 78 yo M w/ displaced left femoral neck fx s/p L MARIBETH, POD #2. - WBAT, anterior precautions - reg diet - oral pain meds - PT/OT - DVT ppx: lovenox, teds, SCDs - continue medical co-management - acute blood loss anemia - Hgb 13.4, continue to monitor - dispo: d/c planning ongoing - Problems/Diagnosis (1) Fracture of femoral neck, left Problem: Acute Qualifiers: Encounter type: initial encounter Fracture type: closed Qualified Code(s): S72.002A - Fracture of unspecified part of neck of left femur, initial encounter for closed fracture
[2019-04-18 13:58] LABS: Urine Bilirubin 1 mg/dl (NEGATIVE); Urine Blood 25 /ul (NEGATIVE); Urine Ketone 5 mg/dL (NEGATIVE); Urine Nitrite Negative (NEGATIVE); Urine Protein >=300 mg/dL (NEGATIVE); Urine Specific Gravity >=1.030 SP.GR. (1.005-1.030); Urine Urobilinogen Normal (NORMAL)
[2019-04-18 14:09] LABS: Urine Appearance Slightly Cloudy (CLEAR); Urine Color Dark Yellow
[2019-04-18 14:10] LABS: Urine Bacteria TRACE; Urine Coarse Granular Cast 0-5 /LPF; Urine Mucus Few - 1+
[2019-04-18] MEDS: ENOXAPARIN SODIUM 40 MG/0.4 ML SYRG SC SCH (14:30)
[2019-04-18] MEDS: INSULIN ASPART PROT/INSULN ASP 100 UNITS/ML VIAL SC SCH (17:15)
[2019-04-18] MEDS ORDERED: INSULIN LISPRO PROTAMIN/LISPRO 100 UNITS/ML VIAL SC ONE (17:15)
[2019-04-18] MEDS: TAMSULOSIN HCL 0.4 MG CAP.SR.24H PO SCH (17:37)
[2019-04-18] MEDS: SENNOSIDES/DOCUSATE SODIUM 1 TAB TABLET PO SCH (20:33)
[2019-04-18] MEDS: SERTRALINE HCL 50 MG TABLET PO SCH (20:33)
[2019-04-18] MEDS: GABAPENTIN 300 MG CAPSULE PO SCH (20:35)
[2019-04-19] MEDS: oxyCODONE HCL/ACETAMINOPHEN 1 TAB TABLET PO PRN ×2 (02:31→09:15)
[2019-04-19] MEDS: LOSARTAN POTASSIUM 50 MG TABLET PO SCH (09:05)
[2019-04-19] MEDS: EZETIMIBE 10 MG TABLET PO SCH (09:05)
[2019-04-19] MEDS: GABAPENTIN 300 MG CAPSULE PO SCH ×2 (09:05→21:59)
[2019-04-19] MEDS: SIMVASTATIN 40 MG TABLET PO SCH (09:05)
[2019-04-19] MEDS: FAMOTIDINE 20 MG TABLET PO SCH (09:06)
[2019-04-19] MEDS: METOPROLOL TARTRATE 50 MG TABLET PO SCH ×2 (09:06→22:00)
[2019-04-19] MEDS: INSULIN ASPART PROT/INSULN ASP 100 UNITS/ML VIAL SC SCH ×2 (09:16→17:22)
--- NOTE | 2019-04-19 09:46 | PN ---
Subjective - Date and Time Seen Date: 04/19/19 Time: 07:35 Subjective Narrative: No acute events. Notes moderate pain worse with WB better with rest. Notes he has tolerated PO diet and has been up and ambulated with assistance. Objective - Vitals Vitals: Last Vital Signs Temp 36.7 C 04/19/19 07:55 Pulse 73 04/19/19 09:06 Resp 18 04/19/19 07:55 BP 162/75 H 04/19/19 09:06 Pulse Ox 93 04/19/19 07:55 - Abnormal Lab Findings Abnormal Lab Findings: Abnormal Lab Results 04/18/19 Range/Units 13:48 Urine Protein >=300 H (NEGATIVE) mg/dL Urine Glucose (UA) 100 H (NEGATIVE) mg/dL Urine Blood 25 H (NEGATIVE) /ul Urine Bilirubin 1 H (NEGATIVE) mg/dl Prot Sulfosalicylic Acd 4+ H (0) mg/dL Ur Leukocyte Esterase 25 H (NEGATIVE) /ul Urine RBC 5-10 H (0-5) /hpf Urine WBC 10-25 H (0-5) /hpf Ur Epithelial Cells 5-10 H (0-5) /hpf Hyaline Casts 10-25 H (NONE) /LPF Coarse Granular Casts 0-5 H (NONE) /LPF Urine Mucus Few - 1+ H (NONE) - Exam Constitutional: Present: Alert, Cooperative, No distress - resting comfortably upon presentation Respiratory: Present: no respiratory distress Extremity: Present: other - LLE--> bandages c/d/i, distal capillary refill brisk, SILT, 5/5 PF and DF, dressing in place, diffuse mild ttp of left hip Cauti Physician Documentation - Urinary Catheter Management Urethral (Gonzalez) Date of Insertion: 04/16/19 Time of Insertion: 14:09 Date of Removal: 04/17/19 Time of Removal: 05:30 Assessment/Plan Plan Narrative: 78 yo M w/ displaced left femoral neck fx s/p L MARIBETH, POD #3. - WBAT, anterior precautions - reg diet - oral pain meds - PT/OT - DVT ppx: lovenox, teds, SCDs - continue medical co-management - acute blood loss anemia, stable - dispo: Due to patient's need for significant assistance with physical therapy, note he has been a two-person assist discussed with case management concern for need for retirement facility. Note patient has previously been to [facility] status post back surgery, will begin this process today. - Problems/Diagnosis (1) Status post total hip replacement, left Problem: Acute (2) Fracture of femoral neck, left Problem: Acute Qualifiers: Encounter type: initial encounter Fracture type: closed Qualified Code(s): S72.002A - Fracture of unspecified part of neck of left femur, initial encounter for closed fracture
[2019-04-19 13:40] LABS: Hematocrit 33.6 % (42.0-52.0); Hemoglobin 11.7 gm/dL (13.5-18.0); Mean Cell Volume 96.3 fl (78-100); Mean Corpuscular Hemoglobin 33.5 pg (27-31); Mean Corpuscular Hgb Conc 34.8 g/dl (32-36); Mean Platelet Volume 10.5 fl (8-11.3); Platelet Count 175 K/mm3 (150-450); Red Blood Count 3.49 M/mm3 (4.7-6.0); Red Cell Distribution Width 13.6 % (11.5-14.0); White Blood Count 13.7 K/mm3 (4.0-10.5)
[2019-04-19 13:42] LABS: Total Cells Counted 100
[2019-04-19 13:58] LABS: Anion Gap 11.6 mmol/L (6.8-13.8); BUN/Creatinine Ratio 18.8 (9.0-21.6); Bilirubin, Total 0.6 mg/dL (0.0-1.1); Calcium * 8.5 mg/dL (7.9-10.9); Potassium 3.6 mmol/L (3.4-4.6); Total Protein 6.1 gm/dL (6.2-8.2)
[2019-04-19] MEDS: ENOXAPARIN SODIUM 40 MG/0.4 ML SYRG SC SCH (14:08)
[2019-04-19 14:11] LABS: Atypical (Reactive) Lymph 7 % (0-2); Band 1 % (0-2.0); Eosinophil 1 % (0-3); Lymphocyte 12 % (20-51); Monocyte 8 % (0-9); Neutrophil 71 % (42-75); Neutrophil # 9.7 K/mm3 (1.3-6.0)
[2019-04-19 14:12] LABS: Platelet Estimate Normal (NORMAL)
[2019-04-19 14:13] LABS: RBC Morphology Normal (NORMAL)
--- NOTE | 2019-04-19 15:15 | PN ---
Subjective - Date and Time Seen Date: 04/19/19 Time: 12:30 Subjective Narrative: No acute event over night. Patient slept well. Pain is well controlled. Appetite at baseline. Patient is A0X3. No F/C. Denies CP or SOB. Discussed management and possible discharge tomorrow morning. Objective - Review of Systems Generalized/Overall Review: Reports: Weakness. Denies: Chills, Fever Respiratory: Denies: Shortness of Breath Cardiac: Denies: Chest Pain, Edema, Palpitations Abdominal: Denies: Nausea, Vomiting, Abdominal Pain, Constipation, Diarrhea Musculoskeletal Complaints: Reports: Joint Pain - lef hip Neurological: Reports: No Symptoms Reported Skin: Reports: Dryness - Vitals Vitals: Last Vital Signs Temp 36.7 C 04/19/19 14:00 Pulse 67 04/19/19 14:00 Resp 15 04/19/19 14:00 BP 120/61 04/19/19 14:00 Pulse Ox 93 04/19/19 14:00 - Abnormal Lab Findings Abnormal Lab Findings: Abnormal Lab Results 04/19/19 04/19/19 Range/Units 13:30 13:30 WBC 13.7 H (4.0-10.5) K/mm3 RBC 3.49 L (4.7-6.0) M/mm3 Hgb 11.7 L (13.5-18.0) gm/dL Hct 33.6 L (42.0-52.0) % MCH 33.5 H (27-31) pg Lymphocytes % (Manual) 12 L (20-51) % Neutrophils # (Manual) 9.7 H (1.3-6.0) K/mm3 Monocytes # (Manual) 1.1 H (0.0-1.0) k/mm3 Atypic/Reactive Lymphs 7 H (0-2) % ALT 17 L (19-67) U/L Total Protein 6.1 L (6.2-8.2) gm/dL Albumin 3.0 L (3.4-5.0) gm/dl - Exam Constitutional: Present: Alert, Oriented x3, Cooperative, Well developed, No distress Respiratory: Present: chest non-tender, lungs clear, normal breath sounds Cardiovascular/Chest: Present: normal peripheral pulses, regular rate, rhythm, n o chest tenderness, no edema Abdomen: Present: Normal bowel sounds Extremity: Present: normal range of motion, non-tender, normal inspection Skin Exam: Present: normal color, warm/dry Cauti Physician Documentation - Urinary Catheter Management Urethral (Gonzalez) Date of Insertion: 04/16/19 Time of Insertion: 14:09 Date of Removal: 04/17/19 Time of Removal: 05:30 Assessment/Plan Plan Narrative: 1. Left hemoral fracture, now s/p total left hip replacement POD #4 - Continue PT/OT - Continue current pain medication - Follow as per ortho recommendations: Dr Chavez on board 2. Expressive aphasia concerning for TIA versus CVA s/p surgery now resolved - CT and MRI of brain completed, no acute concerns for ischemia - - Mostly likely as a result of sedation and narcotics 3. Encephalopathy most likely secondary to infection - UA consistent with infection - Started on Ancef 1 gm IV Q24H x 3 days - CBC and CMP PENDING 4. Essential Hypertension - BP well controlled - Continue home medication of losartan 5. Concern for A-fib RVR - On telemetry - Cardiac panel completed no concerns for acute TX - cardioverted - Will continue to monitor 6. NIDDM Type II - Insulin sliding scale and diabetic diet - Blood gluose well controlled - Will continue to monitor FEN: Diabetic diet Activity: as per ortho recommendations DVT prophylaxis: Lovenox 40 mg SC CODE Status: Anticipate discharge within 24 hours to [facility] for further rehab. - Problems/Diagnosis (1) Fracture of femoral neck, left Problem: Acute Qualifiers: Encounter type: initial encounter Fracture type: closed Qualified Code(s): S72.002A - Fracture of unspecified part of neck of left femur, initial encounter for closed fracture (2) Hypertension Problem: Chronic Qualifiers: Hypertension type: essential hypertension Qualified Code(s): I10 - Essential (primary) hypertension (3) Diabetes Problem: Chronic Qualifiers: Diabetes mellitus type: type 2 Diabetes mellitus exterminator termite insulin use: with exterminator termite use Diabetes mellitus complication status: without complication Qualified Code(s): E11.9 - Type 2 diabetes mellitus without complications; Z79.4 - terminal press operator (current) use of insulin
[2019-04-19] MEDS: TAMSULOSIN HCL 0.4 MG CAP.SR.24H PO SCH (17:22)
[2019-04-19] MEDS: SENNOSIDES/DOCUSATE SODIUM 1 TAB TABLET PO SCH (21:59)
[2019-04-19] MEDS: SERTRALINE HCL 50 MG TABLET PO SCH (21:59)
[2019-04-20] MEDS: oxyCODONE HCL/ACETAMINOPHEN 1 TAB TABLET PO PRN ×2 (05:41→11:19)
--- NOTE | 2019-04-20 06:38 | DS ---
(1) Fracture of femoral neck, left Problem: Acute Qualifiers: Encounter type: initial encounter Fracture type: closed Qualified Code(s): S72.002A - Fracture of unspecified part of neck of left femur, initial encounter for closed fracture (2) Encephalopathy due to infection Problem: Acute (3) Paroxysmal atrial fibrillation with RVR Problem: Acute (4) Urinary tract infection, acute Problem: Acute (5) Hypertension Problem: Chronic Qualifiers: Hypertension type: essential hypertension Qualified Code(s): I10 - Essential (primary) hypertension (6) Diabetes Problem: Chronic Qualifiers: Diabetes mellitus type: type 2 Diabetes mellitus terminal system operator insulin use: with care home use Diabetes mellitus complication status: without complication Qualified Code(s): E11.9 - Type 2 diabetes mellitus without complications; Z79.4 - superintendent marine oil terminal (current) use of insulin Date of Discharge:: 04/20/19 Description of Stay: 78-year-old male past medical history of essential hypertension and insulin-dependent diabetes mellitus type 2 presented to [facility] secondary to a fall resulting in a left hip fracture. On arrival to the ER patient was in A. fib RVR and cardioverted without any medical intervention. Dr. Chavez, orthopedic surgeon was consulted on admission. Admitted to Med/Surg on March 17, 2019, shortly after midnight. Labs ordered prior to surgery were unremarkable and EKG was not concerning of A. fib RVR. However prior to surgery patient was in a lot of pain and acutely distressed and I had difficulty controlling has blood pressure and he was also tachycardic however in NSR. Patient was complaining of a headache. Patient received his home dose of losartan 300 mg p.o x 1, followed by hydralazine 10 mg p.o. x1 and labetalol 5 mg IV x1 with minimal improvement. Discussed with patient, about increased risk factors of going to surgery whilst hypertensive such as cardiovascular complication i.e stroke. Patient understood. However after administering all the medication patient was no longer symptomatic. Denied headache, chest pain or shortness of breath. Patient had a total left hip replacement on March 17, 2019. After sedation patient was confused and and reverted into A. fib RVR. There was concerns of probably an acute ischemic event or cardiac versus infectious. CT head without contrast and MRI obtained and no concerns for acute ischemic event. Patient cardioverted with administration of beta-kavon. Cardiac panel completed, troponins trended and no concerns for any acute ischemic disease. EKG concerning for possible old infarct and left bundle branch block. No acute changes. CBC consistent with mild leukocytosis which was most likely reactive versus infectious, and urine analysis was consistent with very tract infection. Patient was started on Ancef 1 g every 24 hours for 3 days. Urine cultures grew no pathogens. Labs obtained this morning showed no leukocytosis that resolved. No Concern for acute encephalopathy. Pain is well controlled. Patient is doing well with physical therapy. No acute events overnight. Showed that he could move his left foot and was pretty excited. Discussed that I will be discharging him to [facility] for rehab on POD #5, With PT OT, Lovenox 40 mg subcutaneous for 6 days starting on April 21, 2019, followed by aspirin 325 mg p.o. daily for 4 weeks. We will also discharge patient on metoprolol 50 mg p.o. twice daily for paroxysmal A. fib. Patient voiced understanding and is agreeable plan. Once discharged from [facility] patient to follow-up with primary care provider which is Dr. Giron out of [facility]. Appointment to be scheduled. Procedures Performed: see notes below - total hip replacement Results and Findings: Pending Mircobiology Results 04/18/19 13:48 Urine,Voided Urine Culture - Preliminary No Growth Lab Pending Results 04/16/19 07:45: PT 10.9 H, INR (Anticoag Therapy) 1.11 H, PTT (Killian) 26.0 04/16/19 07:46: WBC 11.0 H, RBC 4.67 L, Hgb 15.5, Hct 43.7, MCV 93.6, MCH 33.2 H, MCHC 35.5, RDW 13.3, Plt Count 133 L, MPV 9.6, Immature Gran % (Auto) 0.40, Immature Gran # (Auto) 0.04 H, Neutrophils % 74.2, Lymphocytes % 14.6 L, Monocytes % 8.3, Eosinophils % 2.0, Basophils % 0.5, Nucleated RBC % 0.0, Neutrophils # 8.1 H, Lymphocytes # 1.60, Monocytes # 0.9, Eosinophils # 0.2, Absolute Basophils 0.1 04/16/19 07:46: Sodium 142, Plasma Sodium 143 H, Potassium 4.5, Chloride 104, Carbon Dioxide 30.2, Anion Gap 12.3, BUN 13, Creatinine 1.10, Est GFR (Non-Af Amer) 68, BUN/Creatinine Ratio 11.8, Random Glucose 140 H, Calcium 8.8, Calcium Adj for Albumin 8.7, Total Bilirubin 1.0, AST 25, ALT 19, Alkaline Phosphatase 84, Troponin I Less than 0.017, Total Protein 6.5, Albumin 3.7 04/16/19 17:05: Creatinine 1.08, Troponin I 0.018 04/17/19 06:10: WBC 8.8, RBC 3.95 L, Hgb 12.9 L, Hct 37.3 L, MCV 94.4, MCH 32.7 H, MCHC 34.6, RDW 13.4, Plt Count 106 L, MPV 10.3 04/17/19 06:10: Sodium 136, Plasma Sodium 137, Potassium 4.3, Chloride 103, Carbon Dioxide 26.5, Anion Gap 10.8, BUN 16, Creatinine 1.12, Est GFR (Non-Af Amer) 67, BUN/Creatinine Ratio 14.3, Random Glucose 167 H, Calcium 7.7 L 04/17/19 23:50: Troponin I 0.055 04/18/19 03:35: Troponin I 0.047 04/18/19 05:30: WBC 12.4 H D, RBC 4.00 L, Hgb 13.4 L, Hct 38.2 L, MCV 95.5, MCH 33.5 H, MCHC 35.1, RDW 13.2, Plt Count 132 L, MPV 11.2 04/18/19 05:30: Sodium 139, Plasma Sodium 141, Potassium 4.0, Chloride 104, Carbon Dioxide 25.7, Anion Gap 13.3, BUN 13, Creatinine 1.03, Est GFR (Non-Af Amer) 74, BUN/Creatinine Ratio 12.6, Random Glucose 194 H, Calcium 8.0 04/18/19 13:48: Urine Color Dark yellow, Urine Appearance Slightly cloudy, Urine pH 6.0, Ur Specific Vernon >=1.030, Urine Protein >=300 H, Urine Glucose (UA) 100 H, Urine Ketones 5, Urine Blood 25 H, Urine Nitrate Negative, Urine Bilirubin 1 H, Urine Ictotest Negative, Prot Sulfosalicylic Acd 4+ H, Urine Urobilinogen Normal, Ur Leukocyte Esterase 25 H, Urine RBC 5-10 H, Urine WBC 10- 25 H, Ur Epithelial Cells 5-10 H, Urine Bacteria Trace, Hyaline Casts 10-25 H, Coarse Granular Casts 0-5 H, Urine Mucus Few - 1+ H, Urine Culture Comments Culture to follow 04/19/19 13:30: WBC 13.7 H, RBC 3.49 L, Hgb 11.7 L, Hct 33.6 L, MCV 96.3, MCH 33.5 H, MCHC 34.8, RDW 13.6, Plt Count 175, MPV 10.5, Neutrophils % (Manual) 71, Band Neuts % (Manual) 1, Lymphocytes % (Manual) 12 L, Monocytes % (Manual) 8, Eosinophils % (Manual) 1, Neutrophils # (Manual) 9.7 H, Lymphocytes # (Manual) 1.6, Monocytes # (Manual) 1.1 H, Eosinophils # (Manual) 0.1, Atypic/Reactive Lymphs 7 H, Platelet Estimate Normal, RBC Morphology Normal 04/19/19 13:30: Sodium 141, Plasma Sodium 141, Potassium 3.6, Chloride 104, Carbon Dioxide 29.0, Anion Gap 11.6, BUN 22 D, Creatinine 1.17, Est GFR (Non-Af Amer) 64, BUN/Creatinine Ratio 18.8, Random Glucose 106 D, Calcium 8.5, Calcium Adj for Albumin 9.0, Total Bilirubin 0.6, AST 47, ALT 17 L, Alkaline Phosphatase 73, Total Protein 6.1 L, Albumin 3.0 L Discharge Location: [facility] Disposition: [facility] Condition: Stable Level of Care: SNF Discharge Activity: Activity as tolerated - weight bearing as tolerated with anterior precautions, Other Discharge Diet: Consistent carbs - for diabetes type ii, Low salt - for essential hypertension Longterm Therapy: Physical Therapy, Occupation Therapy Consultation Done:: Dr. Chavez (Orthopedic Surgeon) Complete Home Medications List: Complete Home Medication List: Cholecalciferol [Vitamin D] 1,000 unit PO DAILY 04/15/19 Ezetimibe/Simvastatin [Vytorin 10-40 mg Tablet] 1 ea PO DAILY 04/15/19 Famotidine [Pepcid] 20 mg PO DAILY 04/15/19 Gabapentin [Neurontin] 300 mg PO BID 04/15/19 Losartan Potassium 100 mg PO DAILY 04/15/19 Multivit-Min/FA/Lycopen/Lutein [Centrum Silver Tablet] 1 ea PO DAILY 04/15/19 Sertraline HCl [Zoloft] 50 mg PO HS 04/15/19 Tamsulosin HCl 0.4 mg PO DAILY 04/15/19 Tramadol HCl [Rybix Odt] 50 mg PO QID PRN 04/15/19 Insulin Aspart Prot/Insuln Asp [Novolog Mix 70/30] 18 units SC QPM 04/16/19 Insulin Aspart Prot/Insuln Asp [Novolog Mix 70/30] 30 units SC QAM 04/16/19 Methocarbamol [Robaxin] 500 mg PO TID 04/16/19 Aspirin/Dipyridamole [Aggrenox] 325 mg PO BID 28 Days #28 tab 04/20/19 Enoxaparin Sodium [Lovenox] 40 mg SC Q24H #6 disp.syrin 04/20/19 Metoprolol Tartrate [Lopressor] 50 mg PO BID tablet 04/20/19 oxyCODONE HCL/ACETAMINOPHEN [Percocet 5 MG/325 MG] 2 tab PO Q4H PRN #60 tab 04/20/19
[2019-04-20 07:04] LABS: Hematocrit 29.5 % (42.0-52.0); Hemoglobin 10.3 gm/dL (13.5-18.0); Mean Cell Volume 95.8 fl (78-100); Mean Corpuscular Hemoglobin 33.4 pg (27-31); Mean Corpuscular Hgb Conc 34.9 g/dl (32-36); Mean Platelet Volume 10.3 fl (8-11.3); Neutrophil # 4.9 K/mm3 (1.3-6.0); Neutrophil % 56.7 % (42-75.0); Platelet Count 149 K/mm3 (150-450); Red Blood Count 3.08 M/mm3 (4.7-6.0); Red Cell Distribution Width 13.4 % (11.5-14.0); White Blood Count 8.6 K/mm3 (4.0-10.5)
[2019-04-20 07:16] LABS: Albumin * 2.5 gm/dl (3.4-5.0); Anion Gap 10.3 mmol/L (6.8-13.8); BUN/Creatinine Ratio 20.4 (9.0-21.6); Bilirubin, Total 0.8 mg/dL (0.0-1.1); Ca. Corrected For Albumin 8.9 mg/dL (8.4-10.2); Carbon Dioxide 27.4 mmol/L (24-32.6); Potassium 3.7 mmol/L (3.4-4.6); Total Protein 5.3 gm/dL (6.2-8.2)
[2019-04-20] MEDS: EZETIMIBE 10 MG TABLET PO SCH (08:41)
[2019-04-20] MEDS: GABAPENTIN 300 MG CAPSULE PO SCH (08:41)
[2019-04-20] MEDS: METOPROLOL TARTRATE 50 MG TABLET PO SCH (08:41)
[2019-04-20] MEDS: SIMVASTATIN 40 MG TABLET PO SCH (08:42)
[2019-04-20] MEDS: LOSARTAN POTASSIUM 50 MG TABLET PO SCH (08:42)
[2019-04-20] MEDS: INSULIN ASPART PROT/INSULN ASP 100 UNITS/ML VIAL SC SCH (08:42)
[2019-04-20] MEDS: FAMOTIDINE 20 MG TABLET PO SCH (08:42)
[2019-04-20] MEDS ORDERED: MORPHINE SULFATE 2 MG/ML DISP.SYRIN IV PRN (09:45)
[2019-04-20 11:29] VITALS: BP 125/72
--- NOTE | 2019-04-20 15:16 | PN ---
Rhianna Note - Interim Date: 04/20/19 Time: 08:00 Narrative: Patient reports no acute events. Patient is resting comfortably in bed. Patient notes he has been up and ambulated with physical therapy. Exam reveals left lower extremity bandages clean/dry/intact, these were removed to reveal a pernio dressing that had minimal blood serous and fluid at the incision site, it was reinforced with Dermabond, patient has sensation intact light touch, distal capillary refill brisk, 5/5 flexion/dorsiflexion of the ankle. Discussed with patient the following recommendations and continue treatment plan: 78 yo M w/ displaced left femoral neck fx s/p L MARIBETH, POD #4. - WBAT, anterior precautions - reg diet - oral pain meds - PT/OT regress as tolerated - DVT ppx: lovenox until 10 days postop followed by 3 25 mg aspirin daily for 4 to 6 weeks, liang ghotra knee-high -Chronic medical conditions per medicine recommendations - dispo: Discharged to a [facility] facility for continued physical therapy and occupational therapy, continue to monitor incision for significant erythema or drainage, follow-up with orthopedic outpatient clinic at 2 weeks postoperative call with any acute questions or concerns
== END 2019-04-20 11:30 | DRG 469 ==
LOC: ER 23:11 → MS 04-16 00:16
PROVIDERS: ADMIT Family Medicine; ATTEND Family Medicine
DX: W01.0XXA Fall on same level from slipping, tripping and stumbling without subsequent striking against object, initial encounter; G92 Toxic encephalopathy; D62 Acute posthemorrhagic anemia; S50.12XA Contusion of left forearm, initial encounter; R47.01 Aphasia; F32.9 Major depressive disorder, single episode, unspecified; Z79.4 Long term (current) use of insulin; R00.0 Tachycardia, unspecified; I16.0 Hypertensive urgency; I10 Essential (primary) hypertension; N39.0 Urinary tract infection, site not specified; Y92.009 Unspecified place in unspecified non-institutional (private) residence as the place of occurrence of the external cause; I48.0 Paroxysmal atrial fibrillation; N40.0 Benign prostatic hyperplasia without lower urinary tract symptoms; S72.002A Fracture of unspecified part of neck of left femur, initial encounter for closed fracture; E11.9 Type 2 diabetes mellitus without complications
CPT/HCPCS: 36415; 70450; 70553; 73502; 80048; 80053; 81001; 82565; 84484; 85007; 85025; 85027; 85610; 85730; 87086; 93005; 97110; 97116; 97161; 97165; 97535; 99285; A9576